=== PATIENT | female | born 1970 | race Two or more races ===

== ENCOUNTER 2018-11-07 23:10 | Emergency (ER) | payer BC ==
[~2018-11-07] VITALS: Ht 162.6 cm; Wt 86.2 kg
[2018-11-07 23:10] VITALS: BP 139/61
--- NOTE | 2018-11-07 23:10 | NUR ---
ED Nurse Note: pt was brought in by ambulance c/o syncopy. pt denies falling pt have had a right knee surgery earlier and is complaining of nausea, vomiting and diarrhea after taking norco. mother on bedside. pt noted to have knee and right heel on bandage. pt hooked on monitor with vss. seen by ermd will continue to monitor,
[2018-11-07] MEDS ORDERED: Isovue-300 100ml vial INJ PRN (23:30)
--- NOTE | 2018-11-07 23:31 | Emergency Room Report ---
History of Present Illness General Chief Complaint: Syncope Source: Patient Present Illness HPI This is a 48-year-old female with a history lupus. She presents with chief complaint of weakness with nausea and vomiting and diarrhea. She had right knee surgery done today. She has got discharged from the surgical center. She had [place] in recovery and 1 at home. She had watery diarrhea since she got home. Also with nausea and vomiting. She was in the bathroom with severe nausea and vomiting and diarrhea. She was very weak and lightheaded. She did not pass out but felt that she's got a pass out. Denies any trauma. Denies any head injury. Denies any chest pain. She had a history of ischemic colitis in the past. Allergies: Coded Allergies: IRON (Verified Allergy, Unknown, 11/07/18) VANCOMYCIN (Verified Allergy, Unknown, 11/07/18) Patient History Past Medical History: see triage record, old chart reviewed Past Surgical History: other Pertinent Family History: none Social History: Denies: smoking Now: No : 3 Para: 3 Immunizations: other Reviewed Nursing Documentation: PMH: Agreed; PSxH: Agreed Review of Systems Eye: Denies: eye pain, blurred vision ENT: Denies: ear pain, nose congestion, throat swelling Respiratory: Denies: cough, shortness of breath Cardiovascular: Denies: chest pain, palpitations Gastrointestinal: Reports: abdominal pain, diarrhea, nausea, vomiting Musculoskeletal: Denies: back pain, joint pain Skin: Denies: rash Neurological: Denies: headache, numbness Endocrine: Denies: increased thirst, increased urine Hematologic/Lymphatic: Denies: easy bruising All Other Systems: negative except mentioned in HPI Physical Exam Vital Signs Date Time Temp Pulse Resp B/P (MAP) Pulse Ox O2 Delivery O2 Flow Rate FiO2 11/07/18 23:02 98.4 87 16 146/53 97 Room Air vitals normal Sp02 EP Interpretation: reviewed, normal General Appearance: well appearing, no apparent distress, alert Head: normocephalic, atraumatic Eyes: bilateral eye PERRL, bilateral eye EOMI ENT: hearing grossly normal, normal pharynx Neck: full range of motion, supple, no meningismus Respiratory: chest non-tender, lungs clear, normal breath sounds Cardiovascular #1: regular rate, rhythm, no murmur Gastrointestinal: normal bowel sounds, non tender, no mass, no organomegaly, no bruit, non-distended Musculoskeletal: back normal, other - Right knee in a dressing Neurologic: alert, oriented x3 Psychiatric: mood/affect normal Skin: warm/dry Medical Decision Making Diagnostic Impression: Primary Impression: Nausea vomiting and diarrhea Additional Impressions: Weakness generalized Dehydration ER Course Patient presents with near syncope secondary to dehydration from nausea vomiting and diarrhea. No evidence of ACS, PE, colitis, acute abdomen to name a few. We'll discharge home. Lab Results Impression labs unremarkable Last Vital Signs Date Time Temp Pulse Resp B/P (MAP) Pulse Ox O2 Delivery O2 Flow Rate FiO2 11/07/18 23:02 98.4 87 16 146/53 97 Room Air Status: improved Disposition: HOME, SELF-CARE Condition: Stable Scripts Ondansetron (Zofran) 4 Mg Tablet 4 MG ORAL Q6H PRN for Nausea & Vomiting, #10 TAB 0 Refills Prov: Eric Mclaughlin MD 11/08/18 Additional Instructions: Increase fluids. Follow-up with your orthopedic doctor as scheduled. Return if symptom worsen. Eric Mclaughlin MD Nov 07, 2018 23:31
[2018-11-07 23:41] LABS: APPEARANCE,URINE CLEAR; BILIRUBIN, URINE NEGATIVE (NEGATIVE); GLUCOSE, URINE (UA) NEGATIVE (NEGATIVE); KETONES,URINE NEGATIVE (NEGATIVE); LEUKOCYTE ESTERASE ,URINE 1+ (NEGATIVE); NITRITE,URINE NEGATIVE (NEGATIVE); PH,URINE 5 (4.5-8.0); PROTEIN,URINE NEGATIVE (NEGATIVE); UROBILINOGEN,URINE NORMAL MG/DL (0.0-1.0)
[2018-11-07 23:52] LABS: ANION GAP 13 mmol/L (5-15); BLOOD UREA NITROGEN 20 mg/dL (7-18); CALCIUM 8.9 MG/DL (8.5-10.1); CARBON DIOXIDE 27 MMOL/L (21-32); CHLORIDE 105 MMOL/L (98-107); CREATININE 0.8 MG/DL (0.55-1.30); POTASSIUM 4.4 MMOL/L (3.5-5.1); SODIUM 144 MMOL/L (136-145)
[2018-11-07 23:55] LABS: HEMATOCRIT 43.3 % (37.0-47.0); HEMOGLOBIN 13.4 G/DL (12.0-16.0); MEAN CORPUSCULAR VOLUME 82 FL (80-99); PLATELET COUNT 284 K/UL (150-450); RED BLOOD COUNT 5.26 M/UL (4.20-5.40); RED CELL DISTRIBUTION WIDTH 14.2 % (11.6-14.8); WHITE BLOOD COUNT 9.7 K/UL (4.8-10.8)
[2018-11-07 23:57] LABS: ALANINE AMINOTRANSFERASE 33 U/L (12-78); ALBUMIN 3.6 G/DL (3.4-5.0); ALBUMIN/GLOBULIN RATIO 0.9 (1.0-2.7); ALKALINE PHOSPHATASE 70 U/L (46-116); ASPARTATE AMINO TRANSFERASE 20 U/L (15-37); BILIRUBIN,TOTAL 0.3 MG/DL (0.2-1.0)
[2018-11-07 23:57] LABS: COLOR,URINE YELLOW
[2018-11-08] MEDS ORDERED: ZOFRAN4 MG ORAL (01:40)
[2018-11-08 02:05] VITALS: BP 130/65
[2018-11-08 02:10] VITALS: BP 130/65
--- NOTE | 2018-11-08 02:10 | NUR ---
ER DISCHARGE NOTE: Patient is cleared to be discharged per ERMD, pt is aox4, on room air, with stable vital signs. pt was given dc and prescription instructions, pt was able to verbalize understanding, pt id band and iv site removed without complications. pt is able to ambulate with steady gait. pt took all belongings.
--- NOTE | 2018-11-08 10:14 | Diagnostic Imaging Report ---
Clinical Indication: Abdominal pain for 3 days Technique: No oral contrast utilized, per emergency room physician request IV administration nonionic contrast. Venous phase spiral acquisition obtained through the abdomen and pelvis. Multiplanar reconstructions were generated. Total dose length product 907.14 mGycm. CTDIvol(s) 16.82 mGy. Dose reduction achieved using automated exposure control Comparison: none Findings: No evidence of diverticulosis or diverticulitis. The appendix is normal. No small bowel distention. No free or loculated intraperitoneal gas or fluid is evident. There is evidence of prior ventral hernia mesh repair. Distal esophagus stomach, duodenum are unremarkable. The liver, gallbladder, bile ducts, pancreas, spleen, adrenals are unremarkable. There is an accessory splenule noted. Kidneys demonstrate possible parapelvic cysts bilaterally, as well as a subcentimeter lower pole right renal lesion which is too small to characterize. No renal or ureteral calculi, hydronephrosis, or hydroureter. The bladder is unremarkable. The uterus demonstrates what may be a small cervical fibroid. The adnexal structures are unremarkable. No pelvic mass or adenopathy otherwise. The included lung bases are clear. The bones demonstrate minimal lumbar facet arthrosis. A bone island is seen in the left sacral wing. Impression: No definite acute abnormality Evidence of prior ventral hernia repair Possible small bilateral renal parapelvic cysts. Subcentimeter right lower pole renal lesion, too small to characterize, most likely benign simple cysts. No further follow-up necessary Possible small cervical fibroid incidentally noted Other incidental findings as noted, including minimal lumbar facet arthrosis, left sacral wing bone island This agrees with the preliminary interpretation provided overnight by [facility] teleradiology service. The CT scanner at [facility] is accredited by the [employer] and the scans are performed using protocols designed to limit radiation exposure to as low as reasonably achievable to attain images of sufficient resolution adequate for diagnostic evaluation.
--- NOTE | 2018-11-08 15:02 | Cardiology Report ---
APPROVED REPORT EKG Measurement Heart [id number] Normal sinus rhythm Abnormal ECG
== END 2018-11-08 02:10 | disposition home or self-care (01) ==
LOC: EDBD 23:10 → EMR 23:30
DX: R11.2 Nausea with vomiting, unspecified (principal); E86.0 Dehydration; R55 Syncope and collapse; R19.7 Diarrhea, unspecified; R53.1 Weakness; Z98.890 Other specified postprocedural states; Z88.1 Allergy status to other antibiotic agents; Z88.8 Allergy status to other drugs, medicaments and biological substances
CPT/HCPCS: 36415; 74177; 80053; 81003; 81025; 83690; 85025; 93005; 96361; 96374; 99284; J2405; Q9967